=== PATIENT | female | born 1985 | race African-American/Black ===

== ENCOUNTER 2024-03-11 16:20 | Emergency (ER) | payer MEDICAID ==
[~2024-03-11] VITALS: Ht 167.6 cm; Wt 120.2 kg
[~2024-03-11 16:20] MED LIST: FERR-43 PO
[2024-03-11 16:33] VITALS: O2SAT 99
[2024-03-11 17:11] LABS: BASOPHILS % 0.9 % (0.0-2.0); DIFFERENTIAL COMMENT 0; EOSINOPHILS % 13.2 % (0.0-5.0); HEMATOCRIT. 28.6 % (36.0-48.0); LYMPHOCYTES % 32.1 % (20.0-50.0); MEAN CORPUSCULAR HEMOGLOBIN 24.1 pg (28.0-32.0); MEAN CORPUSCULAR HGB CONC 31.6 g/dL (31.0-37.0); MEAN CORPUSCULAR VOLUME 76.2 fL (81.0-99.0); MEAN PLATELET VOLUME 7.4 fl (7.4-10.4); MONOCYTES % 13.3 % (2.0-8.0); NEUTROPHILS % 40.5 % (40.0-76.0); PLATELET 311 x1000/uL (130-400); RED BLOOD CELL COUNT 3.76 mill/uL (4.2-5.4); RED CELL DISTRIBUTION WIDTH 17.6 % (11.6-14.6); WHITE BLOOD COUNT 4.8 x1000/uL (4.5-11.0)
[2024-03-11 17:16] LABS: CHLORIDE 109 mEq/L (98-107); POTASSIUM 4.2 mEq/L (3.5-5.1); SODIUM 140 mEq/L (136-145)
[2024-03-11 17:17] LABS: CALCIUM 8.8 mg/dL (8.7-10.4); CARBON DIOXIDE 24 mEq/L (21-32)
[2024-03-11 17:22] LABS: CREATININE 0.8 mg/dL (0.6-1.0); GLUCOSE 91 mg/dL (70-105); UREA NITROGEN BLOOD 9 mg/dL (9-23)
[2024-03-11 17:24] LABS: ALANINE AMINOTRANSFERASE 21 IU/L (10-49); ALBUMIN 4.2 g/dL (3.2-4.8); ASPARTATE AMINOTRANSFERASE 30 IU/L (<34); BILIRUBIN TOTAL 0.3 mg/dL (0.1-1.0); PROTEIN TOTAL 7.5 g/dL (6.0-8.3)
[2024-03-11 17:43] LABS: TROPONIN I HIGH SENSITIVITY < 4 ng/L (3.0-34)
[2024-03-11] MEDS: PREDNISONE 20MG TABLET PO NR (19:43)
[2024-03-11] MEDS: ALBUTEROL (0.5%) 2.5MG/0.5ML NEB HHN NR (19:47)
[2024-03-11] MEDS: IPRATROPIUM BROMIDE (0.02%) 0.5MG/2.5ML NEB HHN NR (19:47)
[2024-03-11 19:55] VITALS: PULSE 78; RESP 18
[2024-03-11] MEDS ORDERED: ALBU18HF2 IH (20:30)
[2024-03-11] MEDS ORDERED: P20 MT (20:30)
[2024-03-11 20:50] VITALS: BP 176/98; PULSE 75; RESP 18; TEMP 36.66960; O2SAT 100
== END 2024-03-11 21:00 | disposition home or self-care (01) ==
LOC: ER 16:20
DX: J20.9 Acute bronchitis, unspecified (principal); Z98.890 Other specified postprocedural states
CPT/HCPCS: 80053; 85025; 84484; 36415; 71045; 94640; 93005; 99285; J7512; Z7610 ×3

== ENCOUNTER 2024-07-11 13:09 | Emergency (ER) | payer BC, MEDICAID ==
[~2024-07-11] VITALS: Ht 167.6 cm; Wt 124.0 kg
[~2024-07-11 13:09] MED LIST changes: +ALBU18HF2 IH; +P20 MT
[2024-07-11 13:10] VITALS: O2SAT 100
[2024-07-11 13:25] VITALS: BP 130/70; PULSE 81; RESP 14; TEMP 36.8; O2SAT 99
[2024-07-11 15:25] LABS: CHLORIDE 107 mEq/L (98-107); POTASSIUM 4.1 mEq/L (3.5-5.1); SODIUM 137 mEq/L (136-145)
[2024-07-11 15:26] LABS: CALCIUM 8.8 mg/dL (8.7-10.4); CARBON DIOXIDE 23 mEq/L (21-32)
[2024-07-11 15:31] LABS: CREATININE 0.8 mg/dL (0.6-1.0); GLUCOSE 95 mg/dL (70-105); UREA NITROGEN BLOOD 11 mg/dL (9-23)
[2024-07-11 15:33] LABS: ALANINE AMINOTRANSFERASE 8 IU/L (10-49); ALBUMIN 4.1 g/dL (3.2-4.8); ASPARTATE AMINOTRANSFERASE 16 IU/L (<34); BILIRUBIN TOTAL 0.2 mg/dL (0.1-1.0); PROTEIN TOTAL 7.5 g/dL (6.0-8.3)
[2024-07-11 15:46] LABS: B-HCG QUANTITATIVE 19893 mIU/mL (<6)
[2024-07-11 17:21] LABS: HEMATOCRIT. 30.4 % (36.0-48.0); HEMOGLOBIN. 10.1 g/dL (12.0-16.0); MEAN CORPUSCULAR HEMOGLOBIN 26.7 pg (28.0-32.0); MEAN CORPUSCULAR HGB CONC 33.1 g/dL (31.0-37.0); MEAN CORPUSCULAR VOLUME 80.7 fL (81.0-99.0); MEAN PLATELET VOLUME 7.5 fl (7.4-10.4); PLATELET 312 x1000/uL (130-400); RED BLOOD CELL COUNT 3.77 mill/uL (4.2-5.4); RED CELL DISTRIBUTION WIDTH 23.4 % (11.6-14.6); WHITE BLOOD COUNT 6.7 x1000/uL (4.5-11.0)
[2024-07-11 17:22] LABS: DIFFERENTIAL COMMENT 1
[2024-07-11 17:32] LABS: CLARITY URINE CLEAR (CLEAR); COLOR URINE YELLOW (YELLOW); GLUCOSE URINE NEGATIVE (NEGATIVE); KETONES URINE NEGATIVE (NEGATIVE); PROTEIN URINE NEGATIVE (NEGATIVE); SPECIFIC GRAVITY URINE 1.029 (1.005-1.030)
[2024-07-11 17:33] LABS: LEUKOCYTE ESTERASE URINE NEGATIVE (NEGATIVE); NITRITE URINE NEGATIVE (NEGATIVE); OCCULT BLOOD URINE 2+ (NEGATIVE); UROBILINOGEN URINE 0.2 E.U./dL (0.2-1.0)
[2024-07-11 17:37] LABS: BACTERIA URINE TRACE; SQUAMOUS EPITHELIAL CELL URINE 1+ /lpf (RARE/1+); WBC URINE 0-2 /hpf (0-2)
[2024-07-11] MEDS: RHO(D) IMMUNE GLOBULIN 300 MCG/SYR IM ONE (17:37)
[2024-07-11 17:43] LABS: ANISOCYTOSIS 2+; PLATELET ESTIMATE NORMAL
== END 2024-07-11 17:46 | disposition home or self-care (01) ==
LOC: ER 13:09
DX: O03.9 Complete or unspecified spontaneous abortion without complication (principal); I10 Essential (primary) hypertension; Z3A.08 8 weeks gestation of pregnancy; Z79.899 Other long term (current) drug therapy; Z98.890 Other specified postprocedural states
CPT/HCPCS: 36415; 76801; 80053; 81003; 81025; 84702; 85025; 86850; 86870; 86900; 90384; 90471; 99285; J2791

== ENCOUNTER 2024-08-02 11:48 | Emergency (ER) | payer BC ==
[~2024-08-02] VITALS: Ht 167.6 cm; Wt 129.3 kg
[2024-08-02 11:52] VITALS: O2SAT 100
[2024-08-02 11:53] VITALS: BP 137/87; PULSE 88; RESP 16; TEMP 36.9; O2SAT 100
[2024-08-02 14:29] LABS: BASOPHILS % 0.5 % (0.0-2.0); EOSINOPHILS % 13.9 % (0.0-5.0); HEMATOCRIT. 31.4 % (36.0-48.0); HEMOGLOBIN. 10.3 g/dL (12.0-16.0); LYMPHOCYTES % 30.2 % (20.0-50.0); MEAN CORPUSCULAR HEMOGLOBIN 27.3 pg (28.0-32.0); MEAN CORPUSCULAR HGB CONC 32.8 g/dL (31.0-37.0); MEAN CORPUSCULAR VOLUME 83.1 fL (81.0-99.0); MEAN PLATELET VOLUME 7.5 fl (7.4-10.4); MONOCYTES % 7.4 % (2.0-8.0); PLATELET 291 x1000/uL (130-400); RED BLOOD CELL COUNT 3.78 mill/uL (4.2-5.4); RED CELL DISTRIBUTION WIDTH 21.7 % (11.6-14.6); WHITE BLOOD COUNT 7.4 x1000/uL (4.5-11.0)
[2024-08-02 14:36] LABS: CHLORIDE 107 mEq/L (98-107); POTASSIUM 4.1 mEq/L (3.5-5.1); SODIUM 141 mEq/L (136-145)
[2024-08-02 14:37] LABS: CARBON DIOXIDE 26 mEq/L (21-32)
[2024-08-02 14:38] LABS: CALCIUM 9.3 mg/dL (8.7-10.4)
[2024-08-02 14:42] LABS: CREATININE 0.7 mg/dL (0.6-1.0)
[2024-08-02 14:43] LABS: GLUCOSE 83 mg/dL (70-105); UREA NITROGEN BLOOD 10 mg/dL (9-23)
[2024-08-02 15:17] LABS: B-HCG QUANTITATIVE 1184 mIU/mL (<6)
[2024-08-02] MEDS: HYDROCODONE/ACETAMINOPHEN 5/325MG TABLET PO PRN (15:24)
[2024-08-02 16:28] LABS: CLARITY URINE TURBID (CLEAR); COLOR URINE ORANGE (YELLOW); GLUCOSE URINE NEGATIVE (NEGATIVE); KETONES URINE NEGATIVE (NEGATIVE); LEUKOCYTE ESTERASE URINE 2+ (NEGATIVE); NITRITE URINE NEGATIVE (NEGATIVE); OCCULT BLOOD URINE 3+ (NEGATIVE); PH URINE 5.5 (4.5-8.0); PROTEIN URINE 2+ (NEGATIVE); SPECIFIC GRAVITY URINE 1.025 (1.005-1.030); UROBILINOGEN URINE 0.2 E.U./dL (0.2-1.0)
[2024-08-02 16:37] LABS: BACTERIA URINE 1+; SQUAMOUS EPITHELIAL CELL URINE 1+ /lpf (RARE/1+)
[2024-08-02] MEDS ORDERED: IBUP-2029 MT (16:50)
[2024-08-02] MEDS ORDERED: CEPH500C2 MT (16:50)
== END 2024-08-02 16:56 | disposition home or self-care (01) ==
LOC: ER 11:48
DX: O03.9 Complete or unspecified spontaneous abortion without complication (principal); O03.88 Urinary tract infection following complete or unspecified spontaneous abortion; N39.0 Urinary tract infection, site not specified; Z3A.09 9 weeks gestation of pregnancy
CPT/HCPCS: 36415; 76801; 80048; 81003; 81025; 84702; 85025; 86850; 86870; 86900; 99284